=== PATIENT | female | born 1995 | race Caucasian/White ===

== ENCOUNTER 2018-01-06 11:29 | Emergency (ER) | payer BC, OTHER ==
--- NOTE | 2018-01-06 12:05 | EDPHY ---
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 Described as pleuritic. No syncope or near syncope. Atraumatic. No tobacco smoke. Intermittent marijuana smoking. No cocaine use. No vasculopathy history. REVIEW OF SYSTEMS: A ten point review of systems was performed and is negative with the exception of the items mentioned in the HPI PAST MEDICAL & SURGICAL HISTORY: No pertinent medical or surgical history . No history of PE or DVT SOCIAL HISTORY:Nonsmoker. Student. No cocaine use. FAMILY HISTORY: No family history of premature coronary artery disease or sudden unexplained . No family history of vasculopathy PHYSICAL EXAM (Prior to examination, patient consented to physical exam, hands were washed and my usual and customary physical exam procedures followed) 1) GENERAL: Well-developed, well-nourished, alert and oriented. Appears uncomfortable.. Appears anxious 2) HEAD: Normocephalic, atraumatic 3) HEENT: Pupils equal, round, reactive to light bilaterally. Sclera anicteric. Nasopharynx, oropharynx, clear, no lesions. Ears bilaterally with normal tympanic membranes. 4) NECK: Full range of motion, no meningeal signs. 5) LUNGS: Clear auscultation bilaterally, no wheezes, no rhonchi, no retractions. 6) HEART: Guarding her left chest. No crepitus. Regular rate and rhythm, no murmur, no heave, no gallop. 7) ABDOMEN: No guarding, no rebound, no focal tenderness, negative McBurney's, negative Camarena's, negative Rovsing's, negative peritoneal sign, 8) MUSCULOSKELETAL: Moving all extremities, no focal areas of tenderness, no obvious trauma. No peripheral edema or discoloration. 9) BACK: No CVA tenderness, no midline vertebral tenderness, no fluctuance, no step-off, no obvious trauma, no visual or palpable abnormality. 10) SKIN: No rash, no petechiae. 11) Psychiatric: Patient is oriented X 3, there is no agitation. DIFFERENTIAL DIAGNOSIS: In no particular order including but not limited to pneumomediastinum, pneumothorax, pulmonary embolus, cardiac dysrhythmia - Personal History LMP (Females 10-55): Now Current Tetanus/Diphtheria Vaccine: Unsure - Medical/Surgical History Hx Asthma: No Hx Chronic Respiratory Disease: No Hx Diabetes: No Hx Cardiac Disease: No Hx Renal Disease: No Hx Cirrhosis: No Hx Alcoholism: No Hx HIV/AIDS: No Hx Splenectomy or Spleen Trauma: No Other PMH: l knee surg - Social History Smoking Status: Never smoked Constitutional: Initial Vital Signs Temperature (C) 36.7 C 01/06/18 11:30 Heart Rate 104 H 01/06/18 11:30 Respiratory Rate 28 H 01/06/18 11:30 Blood Pressure 128/96 H 01/06/18 11:30 O2 Sat (%) 98 01/06/18 11:30 O2 Delivery Mode Room Air Allergies/Adverse Reactions: No Known Allergies Allergy (Unverified 01/06/18 11:30) Home Medications: Medication Instructions Recorded Adderall 10 MG (*) 01/06/18 Cyclobenzaprine [Flexeril 10 MG 10 mg PO TID #10 tab 01/06/18 (RX)] Ibuprofen [Motrin (*)] 600 mg PO Q6 #15 tab 01/06/18 Medical Decision Making - Diagnostics Imaging Results: Imaging Impressions Chest X-Ray 01/06/18 11:38 Impression: Normal chest. ED Course/Re-evaluation: 12:06 p.m.: Patient appears uncomfortable, will obtain stat chest x-ray, blood work, EKG. Discussed case with secondary supervising physician Dr. Shlomo Whitaker in the ER. 1:40 p.m.: Patient re-evaluated. Have administered morphine, Toradol and re- evaluated at this time which point she states that she is feeling significant improvement. She appears better. She appears more comfortable. She does have reproducible pain in the left scapular region with range of motion. She denies dyspnea. We discussed her laboratory results and diagnostic results. Troponin not obtained on this patient as I think that [place] is less than likely in this patient who is low risk for [place]. I think negative D-dimer adequately excludes pulmonary embolus in this patient whom I have a moderate pretest suspicion for PE. Doubt aortic dissection. Doubt pneumothorax or hemothorax. Doubt pneumomediastinum. Plan will be discharge home with ibuprofen, Flexeril, usual customary precautions instructions. She feels comfortable being discharged. - Data Points Laboratory Results: Laboratory Results 01/06/18 12:20 01/06/18 12:20 01/06/18 01/06/18 01/06/18 12:20 12:20 12:20 WBC RBC Hgb Hct MCV MCH MCHC RDW Plt Count MPV Neut % (Auto) Lymph % (Auto) [place] % (Auto) Eos % (Auto) Baso % (Auto) Nucleat RBC Rel Count Absolute Neuts (auto) Absolute Lymphs (auto) Absolute Monos (auto) Absolute Eos (auto) Absolute Basos (auto) Absolute Nucleated RBC Immature Gran % Immature Gran # D-Dimer 0.31 ug/mLFEU ug/mLFEU (0.00-0.50) Sodium 140 mEq/L mEq/L (135-145) Potassium 4.6 mEq/L mEq/L (3.5-5.2) Chloride 104 mEq/L mEq/L (97-110) Carbon Dioxide 20 mEq/l L mEq/l (22-31) Anion Gap 16 mEq/L mEq/L (8-16) BUN 14 mg/dL mg/dL (7-23) Creatinine 1.0 mg/dL mg/dL (0.6-1.0) Estimated GFR > 60 Glucose 99 mg/dL mg/dL (70-100) Calcium 10.1 mg/dL mg/dL (8.5-10.4) Beta HCG, Qual NEGATIVE 01/06/18 12:20 WBC 15.68 10^3/uL H 10^3/uL (3.80-9.50) RBC 4.51 10^6/uL 10^6/uL (4.18-5.33) Hgb 13.6 g/dL g/dL (12.6-16.3) Hct 39.3 % % (38.0-47.0) MCV 87.1 fL fL (81.5-99.8) MCH 30.2 pg pg (27.9-34.1) MCHC 34.6 g/dL g/dL (32.4-36.7) RDW 12.4 % % (11.5-15.2) Plt Count 360 10^3/uL 10^3/uL (150-400) MPV 8.8 fL fL (8.7-11.7) Neut % (Auto) 85.0 % H % (39.3-74.2) Lymph % (Auto) 8.7 % L % (15.0-45.0) [place] % (Auto) 4.9 % % (4.5-13.0) Eos % (Auto) 0.3 % L % (0.6-7.6) Baso % (Auto) 0.4 % % (0.3-1.7) Nucleat RBC Rel Count 0.0 % % (0.0-0.2) Absolute Neuts (auto) 13.33 10^3/uL H 10^3/uL (1.70-6.50) Absolute Lymphs (auto) 1.36 10^3/uL 10^3/uL (1.00-3.00) Absolute Monos (auto) 0.77 10^3/uL 10^3/uL (0.30-0.80) Absolute Eos (auto) 0.04 10^3/uL 10^3/uL (0.03-0.40) Absolute Basos (auto) 0.07 10^3/uL 10^3/uL (0.02-0.10) Absolute Nucleated RBC 0.00 10^3/uL 10^3/uL (0-0.01) Immature Gran % 0.7 % % (0.0-1.1) Immature Gran # 0.11 10^3/uL H 10^3/uL (0.00-0.10) D-Dimer Sodium Potassium Chloride Carbon Dioxide Anion Gap BUN Creatinine Estimated GFR Glucose Calcium Beta HCG, Qual Medications Given: Discontinued Medications Ketorolac Tromethamine (Toradol) 15 mg IVP EDNOW ONE Stop: 01/06/18 12:51 Last Admin: 01/06/18 13:19 Dose: 15 mg Morphine Sulfate (Morphine) 4 mg IVP EDNOW ONE Stop: 01/06/18 12:08 Last Admin: 01/06/18 12:23 Dose: 4 mg Departure - Departure Disposition: Home, Routine, Self-Care Clinical Impression: Chest pain Qualifiers: Chest pain type: chest pain on breathing Qualified Code(s): R07.1 - Chest pain on breathing Condition: Good Instructions: Chest Pain (ED) Additional Instructions: Seek medical attention if you develop new or worsening chest pain, if you develop new or worsening shortness of breath, or any other symptoms that concern you. Referrals: [facility],. [Clinic] - 2-3 days, call for appt. Prescriptions: Cyclobenzaprine [Flexeril 10 MG (RX)] 10 mg PO TID #10 tab Ibuprofen [Motrin (*)] 600 mg PO Q6 #15 tab
--- NOTE | 2018-01-06 12:15 | CPEKG ---
Heart Rate: 97 RR Interval: 619 P-R Interval: 164 QRSD Interval: 74 QT Interval: 336 QTC Interval: 427 P Preston: 67 QRS Preston: 76 T Wave Preston: -5 EKG Severity - BORDERLINE ECG - EKG Impression: SINUS RHYTHM EKG Impression: BORDERLINE T ABNORMALITIES, INFERIOR LEADS Electronically Signed By: Hipolito Ruvalcaba 06-Jan-2018 18:39:43
[2018-01-06 12:33] LABS: PLATELET COUNT 360 10^3/uL (150-400)
[2018-01-06] MEDS ORDERED: KETOROLAC 30 MG/1 ML SDV IVP ONE (12:50)
[2018-01-06 13:52] VITALS: BP 118/74; PULSE 90; RESP 18; TEMP 98.2; O2SAT 98
== END 2018-01-06 13:52 | disposition home or self-care (01) ==
DX: R07.1 Chest pain on breathing (principal)
CPT/HCPCS: 96374; J1885; J2270

== ENCOUNTER 2018-01-21 14:17 | Emergency (ER) | payer OTHER ==
[2018-01-21 14:26] VITALS: BP 122/82; PULSE 99; RESP 16; TEMP 98.2; O2SAT 97
[2018-01-21] MEDS ORDERED: IBUPROFEN 600 MG TAB PO ONE (14:26)
--- NOTE | 2018-01-21 14:56 | EDPHY ---
H & P Time Seen by Provider: 01/21/18 14:17 HPI/ROS: CHIEF COMPLAINT: Right ankle injury HISTORY OF PRESENT ILLNESS: Patient arrives by EMS after stating right ankle injury at soccer. She had an inversion injury and then landed on it. She complains of pain mostly laterally does not radiate but some medially. Much worse with palpation or movement or weight-bearing. Does not radiate. Not associated with knee or leg or foot symptoms or weakness or numbness or laceration. REVIEW OF SYSTEMS: Eye: No visual symptoms ENT: No symptoms Cardiac: Did not have syncope Pulmonary: Not short of breath Abdomen: No abdominal pain or injury Musculoskeletal: No neck or back pain and see HPI Skin: No laceration Neuro: No weakness or numbness distally Constitutional: no fever or recent illness : No symptoms A comprehensive 10 point review of systems is otherwise negative aside from elements mentioned in the history of present illness. 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 Eyes: No scleral icterus. ENT, Mouth: Normal mucous membranes. Respiratory: Normal respiratory effort, breath sounds equal, lungs are clear to auscultation. Cardiovascular: Regular rate and rhythm. Gastrointestinal: Abdomen is soft and non tender. Neurological: Alert, face symmetric, normal motor and sensory in extremities. Skin: Small abrasion left knee Musculoskeletal: Lateral malleolus tenderness and swelling on the right-hand side of her ankle, a little bit of medial tenderness. Ankle joint is stable. Achilles is nontender. Proximal tib-fib is nontender with normal compartment in the leg. Knee has good range of motion. Ft is nontender. Psychiatric: Not agitated. Emergency Department course/MDM: Oral ibuprofen and x-ray. 1450: X-ray reviewed with team physician and patient and parents and boyfriend in the room. Medial malleolar chips appeared to my reading to be old. Air cast, orthopedic follow-up with team physician this week. 1542: called patient, informed that the radiologist read is medial malleolus avulsion fragments acute from today. Her change in instructions is only nonweightbearing with crutches and continue with the air cast. Patient verbalizes understanding, will follow up with Ortho and be nonweightbearing until seen by them. Smoking Status: Never smoked Constitutional: Initial Vital Signs Temperature (C) 36.8 C 01/21/18 14:21 Heart Rate 99 01/21/18 14:21 Respiratory Rate 16 01/21/18 14:21 Blood Pressure 122/82 H 01/21/18 14:21 O2 Sat (%) 97 01/21/18 14:21 O2 Delivery Mode Room Air Allergies/Adverse Reactions: No Known Allergies Allergy (Unverified 01/06/18 11:30) Home Medications: Medication Instructions Recorded Adderall 10 MG (*) 01/06/18 Cyclobenzaprine [Flexeril 10 MG 10 mg PO TID #10 tab 01/06/18 (RX)] Ibuprofen [Motrin (*)] 600 mg PO Q6 #15 tab 01/06/18 MDM/Departure - MDM Imaging Results: Imaging Impressions Ankle X-Ray 01/21/18 14:26 Impression: Medial malleolar avulsion fracture fragments with soft tissue swelling. Right ankle soft tissue swelling consistent with sprain and old medial chips. Imaging: I viewed and interpreted images myself Medications Given: Discontinued Medications Ibuprofen (Motrin) 600 mg PO EDNOW ONE Stop: 01/21/18 14:27 Last Admin: 01/21/18 14:30 Dose: 600 mg - Depart Disposition: Home, Routine, Self-Care Clinical Impression: medial malleolus chip fracture Right ankle sprain Qualifiers: Encounter type: initial encounter Involved ligament of ankle: unspecified ligament Qualified Code(s): S93.401A - Sprain of unspecified ligament of right ankle, initial encounter Condition: Good Instructions: Ankle Sprain (ED), Ankle Stirrup Splint (ED) Additional Instructions: Emergency physician reading of year x-ray is sprain with old medial malleolar chips. If the radiologist interpretation differs we will call you with the discrepancy. Activity as tolerated, please follow-up with team orthopedic surgeon this week for re-evaluation Referrals: Rodolfo Singh MD [Medical Doctor] - 1-2 days without fail
== END 2018-01-21 15:11 | disposition home or self-care (01) ==
LOC: EDUNIT#
DX: S82.51XA Displaced fracture of medial malleolus of right tibia, initial encounter for closed fracture (principal); S93.401A Sprain of unspecified ligament of right ankle, initial encounter; X50.9XXA Other and unspecified overexertion or strenuous movements or postures, initial encounter
CPT/HCPCS: L4350